=== PATIENT | male | born 1995 | race Caucasian/White ===

== ENCOUNTER 2018-01-07 10:04 | Emergency (ER) | payer BC, OTHER ==
[2018-01-07 10:13] VITALS: BP 130/96; PULSE 100; TEMP 98.7; BMI 33.6
--- NOTE | 2018-01-07 10:30 | PDOC ---
History of Present Illness - General Chief Complaint: Sore Throat Stated Complaint: SORE THROAT Time Seen by Provider: 01/07/18 10:19 History Source: Patient Exam Limitations: No Limitations - History of Present Illness Initial Comments: 01/07/18 10:29 22 yr male with sore throat 2 days no fever. no medical history or allergies. Timing/Duration: constant (2 days ) Past History - Past Medical History Allergies/Adverse Reactions: Allergies Allergy/AdvReac Type Severity Reaction Status Date / Time No Known Allergies Allergy Verified 01/07/18 10:09 Home Medications: Ambulatory Orders NK [No Known Home Medication] 01/07/18 - Immunization History Immunization Up to Date: Yes - Suicide/Smoking/Psychosocial Hx Smoking Status: No Smoking History: Never smoked Number of Cigarettes Smoked Daily: 0 Hx Alcohol Use: No Substance Use Type: None Review of Systems - Review of Systems Able to Perform ROS?: Yes Is the patient limited Lithuanian proficient: No Constitutional: No: Symptoms Reported HEENTM: Yes: Symptoms Reported *Physical Exam - Vital Signs Last Vital Signs Temp Pulse Resp BP Pulse Ox 98.7 F 100 H 16 130/96 99 01/07/18 10:06 01/07/18 10:06 01/07/18 10:06 01/07/18 10:06 01/07/18 10:06 - Physical Exam General Appearance: Yes: Nourished, Appropriately Dressed HEENT: positive: EOMI, RUSSELL, Other (post nasal drip ) Neck: negative: Tender Respiratory/Chest: positive: Lungs Clear, Normal Breath Sounds Cardiovascular: positive: Regular Rhythm, Regular Rate Integumentary: positive: Normal Color, Dry, Warm Neurologic: positive: Fully Oriented, Alert, Normal Mood/Affect, Normal Response , Motor Strength 5/5 *DC/Admit/Observation/Transfer Diagnosis at time of Disposition: Pharyngitis Qualifiers: Pharyngitis/tonsillitis etiology: unspecified etiology Qualified Code(s): J02.9 - Acute pharyngitis, unspecified - Discharge Dispostion Disposition: HOME Condition at time of disposition: Good - Referrals Referrals: Ayaz Jameson MD [Staff Physician] - - Patient Instructions Additional Instructions: gargle with warm salt water 4-5 times a day throat lozengers of your choice can be helpful tea with honey and lemon take ibuprofen or tylenol over the counter for pain as needed follow with ENT if any worsening symptoms - Post Discharge Activity
== END 2018-01-07 11:44 | disposition home or self-care (01) ==
LOC: JERFT 10:04 → JER 10:04 → JERFT 11:44
DX: J02.9 Acute pharyngitis, unspecified (principal)
CPT/HCPCS: 87070; 87430; 99281-25

== ENCOUNTER 2022-04-30 17:26 | Emergency (ER) | payer BC ==
[2022-04-30 17:37] VITALS: BP 161/90; PULSE 101; RESP 18; TEMP 98.1; BMI 34.2
[2022-04-30] MEDS ORDERED: IBUPROFEN 600 MG TABLET (FP) PO ONE ×2 (19:04→19:05)
== END 2022-04-30 19:19 | disposition home or self-care (01) ==
LOC: JERFT 17:26
DX: S60.041A Contusion of right ring finger without damage to nail, initial encounter (principal); W23.0XXA Caught, crushed, jammed, or pinched between moving objects, initial encounter
CPT/HCPCS: 73140-TC-RT-FY; 99283-25

== ENCOUNTER 2022-08-29 22:54 | Emergency (ER) | payer BC, OTHER ==
[2022-08-29 22:59] VITALS: BP 147/85; PULSE 108; RESP 18; TEMP 98; BMI 35.2
[2022-08-30] MEDS ORDERED: ACETAMINOPHEN 500 MG TABLET (FP) PO ONE (00:23)
[2022-08-30] MEDS ORDERED: LIDOCAINE 5% TOPICAL PATCH TP ONE (00:23)
[2022-08-30] MEDS ORDERED: ACETAMINOPHEN 325 MG TABLET (FP) ONE (00:46)
[2022-08-30] MEDS ORDERED: LIDOCAINE 5% TOPICAL PATCH ONE (00:46)
[2022-08-30] MEDS ORDERED: LIDOCAINE PATCH REMOVAL MC SCH (22:00)
== END 2022-08-30 00:51 | disposition home or self-care (01) ==
LOC: JER 22:54
DX: M25.512 Pain in left shoulder (principal)
CPT/HCPCS: 73030-TC-LT-FY; 73060-TC-LT-FY; 93005; 93010; 99284-25